=== PATIENT | male | born 1980 | race Asian ===

== ENCOUNTER 2017-10-03 18:21 | Emergency (ER) | payer SELFPAY ==
[2017-10-03 18:48] VITALS: BP 125/98
[2017-10-03] MEDS ORDERED: MOTRIN PO ONE (20:41)
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
== END 2017-10-03 21:40 | disposition home or self-care (01) ==
LOC: ED 18:21
DX: S00.12XA Contusion of left eyelid and periocular area, initial encounter (principal); Y08.89XA Assault by other specified means, initial encounter; Y93.89 Activity, other specified; Y92.89 Other specified places as the place of occurrence of the external cause; Y99.8 Other external cause status
CPT/HCPCS: 70450; 70486